=== PATIENT | male | born 1975 | race Caucasian/White ===

== ENCOUNTER 2023-12-24 14:54 | Emergency (ER) | payer OTHER ==
[~2023-12-24] VITALS: Ht 172.7 cm; Wt 72.6 kg
[2023-12-24 14:57] VITALS: O2SAT 97
[2023-12-24] MEDS ORDERED: TDAP DIPH,PERTUSS,TET VAC/PF 0.5 ML DISP.SYRIN IM ONE (15:06)
[2023-12-24] MEDS: TDAP DIPH,PERTUSS,TET VAC/PF 0.5 ML DISP.SYRIN IM ONE (15:08)
[2023-12-24] MEDS ORDERED: IBUPROFEN 600 MG TABLET ONE (15:47)
[2023-12-24] MEDS: IBUPROFEN 600 MG TABLET PO ONE (15:49)
== END 2023-12-24 15:57 | disposition home or self-care (01) ==
LOC: ER 14:54
DX: S00.01XA Abrasion of scalp, initial encounter (principal); W22.8XXA Striking against or struck by other objects, initial encounter; Y93.89 Activity, other specified; Y92.89 Other specified places as the place of occurrence of the external cause; Y99.8 Other external cause status
CPT/HCPCS: 70450; 72125; 90715; A4606; A4663